=== PATIENT | male | born 1960 | race Hispanic/Latino ===

== ENCOUNTER 2017-06-15 09:50 | Emergency (ER) | payer OTHER ==
[~2017-06-15] VITALS: Ht 177.8 cm; Wt 100.0 kg
[~2017-06-15 09:50] MED LIST: BENZTROPINE0.5 MG PO; BUPROPION150 MG PO; BUT/APAP/CAF PO; FIORICET PO; LISINOPRIL/HYDR1 TA1 PO; LORTAB 10 OR; MEDDOSEPAK PO; MIRTAZAPINE15 MG PO; NO HOME MEDS; RISPERDAL2 MG PO; SEROQUEL100 MG PO; TRAZODONE50 MG PO
[2017-06-15 10:38] LABS: HEMATOCRIT 44.5 % (39.0-50.0); HEMOGLOBIN 15.2 g/dl (14.0-18.0); IMMATURE GRANULOCYTES 0.4 % (0.0-1.0); MEAN CORPUSCULAR HGB CONC 34.2 g/L CALC (32.0-36.0); NEUT# 5.65 thou/uL (1.82-7.42); RED BLOOD COUNT 4.9 mill/uL (4.70-6.10); RED CELL DISTRI WIDTH 12.9 % (11.5-15.5)
[2017-06-15 10:40] LABS: MEAN CELL VOLUME 90.8 fL CALC (80.0-100.0)
[2017-06-15 11:26] LABS: ALKALINE PHOSPHATASE 102 u/l (38-126); ANION GAP 17 (6-22 (CALC)); BILIRUBIN, TOTAL 0.3 mg/dL (0.0-1.4); BUN 15 mg/dL (9-20); BUN/CREATININE RATIO 15 (12-20 (CALC)); CARBON DIOXIDE 26 mmol/l (22-30); CHLORIDE 105 mmol/l (95-108); GFR > 60 ML/MIN (>=60 (CALC)); GFR FOR AFR.AMER. > 60 ML/MIN (>=60 (CALC)); LIPASE 86 u/l (23-300); POTASSIUM 3.7 mmol/l (3.5-5.1); SGPT/ALT 90 u/l (21-72); SODIUM 144 mmol/l (137-146); TOTAL PROTEIN 7.6 g/dL (6.3-8.2)
[2017-06-15 11:27] LABS: SGOT/AST 64 u/l (17-59)
[2017-06-15] MEDS ORDERED: AMOXICILLIN500 M2 PO (12:03)
[2017-06-15] MEDS ORDERED: DOXY 100100 MG PO (12:03)
[2017-06-15] MEDS ORDERED: VENTOLIN HFA IN (12:03)
[2017-06-15] MEDS ORDERED: TORADOL PO (12:03)
[2017-06-15 13:31] VITALS: BP 139/76
== END 2017-06-15 13:36 | disposition home or self-care (01) | DRG 195 ==
LOC: ED 09:50
PROVIDERS: Emergency Medicine
DX: J18.9 Pneumonia, unspecified organism (principal); R00.1 Bradycardia, unspecified; R42 Dizziness and giddiness; R53.1 Weakness; R07.9 Chest pain, unspecified; Z85.038 Personal history of other malignant neoplasm of large intestine

== ENCOUNTER 2019-05-25 | Emergency (ER) | payer OTHER ==
[~2019-05-25] MED LIST changes: +AMOXICILLIN500 M2 PO; +DOXY 100100 MG PO; +TORADOL PO; +VENTOLIN HFA IN
== END 2019-05-25 22:20 | disposition left against medical advice (07) ==
DX: G43.909 Migraine, unspecified, not intractable, without status migrainosus (principal); F17.200 Nicotine dependence, unspecified, uncomplicated; Z91.19 Patient's noncompliance with other medical treatment and regimen

== ENCOUNTER 2019-05-27 | Emergency (ER) | payer OTHER ==
[2019-05-27 18:44] LABS: HEMATOCRIT 42.3 % (39.0-50.0); HEMOGLOBIN 14.2 g/dl (14.0-18.0); IMMATURE GRANULOCYTES 0.4 % (0.0-5.0); MEAN CELL VOLUME 90.6 fL CALC (80.0-100.0); MEAN CORPUSCULAR HGB 30.4 pG CALC (26.0-32.0); MEAN CORPUSCULAR HGB CONC 33.6 g/L CALC (32.0-36.0); NEUT# 5.52 thou/uL (1.82-7.42); RED BLOOD COUNT 4.67 mill/uL (4.70-6.10); RED CELL DISTRI WIDTH 13.2 % (11.5-15.5)
[2019-05-27 18:59] LABS: ANION GAP 14 (6-22 (CALC)); BUN 20 mg/dL (9-20); BUN/CREATININE RATIO 19 (12-20 (CALC)); CARBON DIOXIDE 23 mmol/l (22-30); CHLORIDE 105 mmol/l (95-108); CREATININE 1.1 mg/dL (0.7-1.3); GFR > 60 ML/MIN (>=60 (CALC)); GFR FOR AFR.AMER. > 60 ML/MIN (>=60 (CALC)); POTASSIUM 3.5 mmol/l (3.5-5.1); SODIUM 138 mmol/l (137-146)
[2019-05-27] MEDS ORDERED: IMITREX25 MG PO (20:01)
== END 2019-05-27 20:10 | disposition home or self-care (01) ==
PROVIDERS: Family Medicine
DX: G43.909 Migraine, unspecified, not intractable, without status migrainosus (principal); F17.200 Nicotine dependence, unspecified, uncomplicated

== ENCOUNTER 2019-11-19 16:08 | Emergency (ER) | payer OTHER ==
[~2019-11-19] VITALS: Ht 177.8 cm; Wt 100.0 kg
[~2019-11-19 16:08] MED LIST changes: +IMITREX25 MG PO
[2019-11-19 16:46] LABS: HEMATOCRIT 40.5 % (39.0-50.0); HEMOGLOBIN 13.5 g/dl (14.0-18.0); IMMATURE GRANULOCYTES 0.2 % (0.0-5.0); MEAN CELL VOLUME 90.8 fL CALC (80.0-100.0); MEAN CORPUSCULAR HGB 30.3 pG CALC (26.0-32.0); MEAN CORPUSCULAR HGB CONC 33.3 g/dL CAL (32.0-36.0); NEUT# 5.58 thou/uL (1.82-7.42); RED BLOOD COUNT 4.46 mill/uL (4.70-6.10)
[2019-11-19 17:01] LABS: ALBUMIN 4.2 g/dL (3.2-5.0); ALKALINE PHOSPHATASE 104 u/l (38-126); ANION GAP 13 (6-22 (CALC)); BUN 12 mg/dL (9-20); BUN/CREATININE RATIO 12 (12-20 (CALC)); CARBON DIOXIDE 24 mmol/l (22-30); CHLORIDE 106 mmol/l (95-108); GFR > 60 ML/MIN (>=60 (CALC)); GFR FOR AFR.AMER. > 60 ML/MIN (>=60 (CALC)); POTASSIUM 3.7 mmol/l (3.5-5.1); SGOT/AST 39 u/l (17-59); SODIUM 139 mmol/l (137-146); TOTAL PROTEIN 7.6 g/dL (6.3-8.2)
[2019-11-19 17:06] LABS: BILIRUBIN, TOTAL 0.3 mg/dL (0.0-1.4)
[2019-11-19 17:40] VITALS: BP 133/82
== END 2019-11-19 17:45 | disposition home or self-care (01) ==
LOC: ED 16:08
PROVIDERS: Family Medicine
DX: R55 Syncope and collapse (principal); F17.200 Nicotine dependence, unspecified, uncomplicated; Z20.828 Contact with and (suspected) exposure to other viral communicable diseases; Z85.038 Personal history of other malignant neoplasm of large intestine; R07.9 Chest pain, unspecified

== ENCOUNTER 2020-01-14 15:03 | Emergency (ER) | payer OTHER ==
[~2020-01-14] VITALS: Ht 177.8 cm; Wt 100.0 kg
[2020-01-14 17:42] VITALS: BP 131/82
== END 2020-01-14 17:49 | disposition home or self-care (01) ==
LOC: ED 15:03
DX: Z20.828 Contact with and (suspected) exposure to other viral communicable diseases (principal); F41.9 Anxiety disorder, unspecified; F31.9 Bipolar disorder, unspecified; F17.200 Nicotine dependence, unspecified, uncomplicated

== ENCOUNTER 2020-10-26 13:13 | Emergency (ER) | payer OTHER ==
[~2020-10-26] VITALS: Ht 177.8 cm; Wt 100.0 kg
[~2020-10-26 13:13] MED LIST changes: +BENZTROPINE1 MG PO; +BUPROPN HCL300 MG PO; +CVS STOOL SOFT PO; +GABAPENTIN400 M2 PO; +LACTULOSE10 GM PO; +LISINOP/HCTZ1 TAB PO; +MELOXICAM15 MG PO; +METHOCARBAMOL500 MG PO; +MIRTAZAPINE45 M1 PO; +PRAVASTATIN20 MG PO; +QUETIAPINE FUM200 MG PO; +RISPERDAL PO; +RISPERIDONE4 M1 PO; +TAMSULOSIN HCL0.4 MG PO; +TOPIRAMATE ER50 MG PO; +TRAMADOL HCL50 MG PO; +TRAZODONE HYDR150 MG PO; +TRILEPTAL150 M1 PO
[2020-10-26 15:55] VITALS: BP 127/73
== END 2020-10-26 15:54 | disposition home or self-care (01) ==
LOC: ED 13:13
DX: G43.909 Migraine, unspecified, not intractable, without status migrainosus (principal); F31.9 Bipolar disorder, unspecified; F41.9 Anxiety disorder, unspecified; F17.210 Nicotine dependence, cigarettes, uncomplicated; Z85.038 Personal history of other malignant neoplasm of large intestine

== ENCOUNTER 2020-10-27 17:45 | Emergency (ER) | payer OTHER ==
[~2020-10-27] VITALS: Ht 177.8 cm; Wt 100.0 kg
[2020-10-28 00:15] VITALS: BP 120/74
[2020-11-24] MEDS ORDERED: GABAPENTIN400 M2 PO (13:55)
[2020-12-08] MEDS ORDERED: GABAPENTIN400 M2 PO (14:23)
[2020-12-08] MEDS ORDERED: TRAMADOL HCL50 MG PO (14:23)
[2020-12-08] MEDS ORDERED: MELOXICAM15 MG PO (14:26)
[2021-01-05] MEDS ORDERED: MELOXICAM15 MG PO ×2 (14:52→14:53)
[2021-01-05] MEDS ORDERED: GABAPENTIN400 M2 PO (14:54)
[2021-01-05] MEDS ORDERED: TRAMADOL HCL50 MG PO (14:56)
== END 2020-10-28 00:15 | disposition home or self-care (01) ==
LOC: ED 17:45
DX: G43.909 Migraine, unspecified, not intractable, without status migrainosus (principal); F31.9 Bipolar disorder, unspecified; F41.9 Anxiety disorder, unspecified; F17.200 Nicotine dependence, unspecified, uncomplicated; Z20.822 Contact with and (suspected) exposure to COVID-19; Z85.038 Personal history of other malignant neoplasm of large intestine

== ENCOUNTER 2020-11-04 05:52 | Day surgery (SDC) | payer OTHER ==
[~2020-11-04] VITALS: Ht 177.8 cm; Wt 99.8 kg
[2020-11-04 07:47] VITALS: BP 130/73
[2020-11-04] MEDS ORDERED: TRAMADOL HCL50 MG PO (07:50)
== END 2020-11-04 08:24 | disposition home or self-care (01) ==
LOC: ORM 05:52
PROVIDERS: ATTEND Anesthesiology Pain Medicine
DX: M54.5 Low back pain (principal); M47.816 Spondylosis without myelopathy or radiculopathy, lumbar region

== ENCOUNTER 2022-08-12 10:59 | Emergency (ER) | payer OTHER ==
[2022-08-12] VITALS (14 sets, daily range): BP systolic 67–131; BP diastolic 47–82
[~2022-08-12] VITALS: Ht 177.8 cm; Wt 104.0 kg
[2022-08-12 12:27] LABS: BASO% 0.5 % (0-3); EOS% 3.4 % (0-8); IMMATURE GRANULOCYTES 0.1 % (0.0-5.0); LYMPH% 21.2 % (15-41); MEAN CELL VOLUME 89.7 fL CALC (80.0-100.0); MEAN CORPUSCULAR HGB CONC 32.3 g/dL CAL (32.0-36.0); MONO% 8.3 % (2-13); NEUT# 5.34 thou/uL (1.82-7.42); NEUT% 66.5 % (42-76); RED BLOOD COUNT 5.42 mill/uL (4.70-6.10); RED CELL DISTRI WIDTH 13.9 % (11.5-15.5)
[2022-08-12 12:32] LABS: HEMATOCRIT 48.6 % (39.0-50.0); HEMOGLOBIN 15.7 g/dl (14.0-18.0)
[2022-08-12 12:38] LABS: ALKALINE PHOSPHATASE 112 u/l (38-126); ANION GAP 14 (6-22 (CALC)); BUN 12 mg/dL (8-23); BUN/CREATININE RATIO 12 (12-20 (CALC)); CARBON DIOXIDE 26 mmol/l (22-30); CHLORIDE 106 mmol/l (95-108); GFR FOR AFR.AMER. > 60 ML/MIN (>=60 (CALC)); GFR OTHER RACES > 60 ML/MIN (>=60 (CALC)); LIPASE 124 u/l (23-300); POTASSIUM 4.8 mmol/l (3.5-5.1); SODIUM 141 mmol/l (137-146)
[2022-08-12 12:39] LABS: ALBUMIN 4.6 g/dL (3.2-5.0); BILIRUBIN, TOTAL 0.5 mg/dL (0.2-1.3); SGOT/AST 74 u/l (19-48)
[2022-08-12 15:01] LABS: URINE BILIRUBIN - DIPSTICK NEGATIVE (NEGATIVE); URINE BLOOD DIPSTICK NEGATIVE (NEGATIVE); URINE COLOR YELLOW; URINE GLUCOSE - DIPSTICK NEGATIVE (NEGATIVE); URINE KETONE NEGATIVE (NEGATIVE); URINE LEUK ESTERASE NEGATIVE (NEGATIVE); URINE NITRITE - DIPSTICK NEGATIVE (Negative); URINE PH 5.5 (4.5-8.0); URINE PROTEIN - DIPSTICK TRACE mg/dL (NEG-TRACE); URINE SPECIFIC GRAVITY 1.015; URINE UROBILINOGEN - DIPSTICK 0.2 E.U./dL (0.2)
[2022-08-12] MEDS ORDERED: PROTONIX40 M2 PO (15:12)
== END 2022-08-12 16:37 | disposition home or self-care (01) ==
LOC: ED 10:59
PROVIDERS: Nurse Practitioner
DX: R10.84 Generalized abdominal pain (principal); F41.9 Anxiety disorder, unspecified; F31.9 Bipolar disorder, unspecified; F17.200 Nicotine dependence, unspecified, uncomplicated; Z85.038 Personal history of other malignant neoplasm of large intestine
CPT/HCPCS: Q9967; S0164

== ENCOUNTER 2022-08-24 11:08 | Emergency (ER) | payer OTHER ==
[~2022-08-24] VITALS: Ht 177.8 cm; Wt 105.0 kg
[2022-08-24] VITALS (37 sets, daily range): BP systolic 130–180; BP diastolic 74–118
[~2022-08-24 11:08] MED LIST changes: +PROTONIX40 M2 PO
[2022-08-24 12:19] LABS: ALBUMIN 4.2 g/dL (3.2-5.0); ALKALINE PHOSPHATASE 99 u/l (38-126); ANION GAP 13 (6-22 (CALC)); BILIRUBIN, TOTAL 0.5 mg/dL (0.2-1.3); BUN 14 mg/dL (8-23); BUN/CREATININE RATIO 15 (12-20 (CALC)); CARBON DIOXIDE 24 mmol/l (22-30); CHLORIDE 111 mmol/l (95-108); CREATININE 0.9 mg/dL (0.7-1.3); GFR FOR AFR.AMER. > 60 ML/MIN (>=60 (CALC)); GFR OTHER RACES > 60 ML/MIN (>=60 (CALC)); LIPASE 142 u/l (23-300); SGOT/AST 76 u/l (19-48); SODIUM 144 mmol/l (137-146); TOTAL PROTEIN 7.4 g/dL (6.3-8.2)
[2022-08-24 12:24] LABS: BASO% 0.4 % (0-3); EOS% 3.3 % (0-8); HEMATOCRIT 45.3 % (39.0-50.0); HEMOGLOBIN 14.8 g/dl (14.0-18.0); IMMATURE GRANULOCYTES 0.4 % (0.0-5.0); MEAN CELL VOLUME 87.8 fL CALC (80.0-100.0); MEAN CORPUSCULAR HGB 28.7 pG CALC (26.0-32.0); MEAN CORPUSCULAR HGB CONC 32.7 g/dL CAL (32.0-36.0); MONO% 5.6 % (2-13); NEUT# 4.27 thou/uL (1.82-7.42); NEUT% 54.3 % (42-76); RED BLOOD COUNT 5.16 mill/uL (4.70-6.10)
[2022-08-24] MEDS ORDERED: MIRTAZAPINE15 MG PO (15:19)
[2022-08-24] MEDS ORDERED: METFORMIN500 M2 PO (15:20)
[2022-08-24] MEDS ORDERED: BENZTROPINE1 MG PO (15:20)
[2022-08-24] MEDS ORDERED: TAMSULOSIN0.4 MG PO (15:20)
[2022-08-24] MEDS ORDERED: NABUMETONE500 MG PO (15:21)
[2022-08-24] MEDS ORDERED: ATORVASTATIN CA40 MG PO (15:21)
[2022-08-24] MEDS ORDERED: NEURONTIN600 MG PO (15:21)
== END 2022-08-24 20:05 | disposition short-term general hospital (02) ==
LOC: ED 11:08
PROVIDERS: Nurse Practitioner
DX: R10.84 Generalized abdominal pain (principal); R05.9 Cough, unspecified; R50.9 Fever, unspecified; R00.1 Bradycardia, unspecified; I44.0 Atrioventricular block, first degree; F31.9 Bipolar disorder, unspecified; F41.9 Anxiety disorder, unspecified; Z85.038 Personal history of other malignant neoplasm of large intestine; F17.210 Nicotine dependence, cigarettes, uncomplicated; Z20.822 Contact with and (suspected) exposure to COVID-19
CPT/HCPCS: Q9967

== ENCOUNTER 2022-09-25 10:00 | Emergency (ER) | payer OTHER ==
[~2022-09-25] VITALS: Ht 177.8 cm; Wt 83.9 kg
[2022-09-25] VITALS (17 sets, daily range): BP systolic 102–145; BP diastolic 58–89
[~2022-09-25 10:00] MED LIST changes: +ATORVASTATIN CA40 MG PO; +METFORMIN500 M2 PO; +NABUMETONE500 MG PO; +NEURONTIN600 MG PO; +TAMSULOSIN0.4 MG PO
[2022-09-25 10:32] LABS: BASO% 0.4 % (0-3); HEMATOCRIT 46.9 % (39.0-50.0); HEMOGLOBIN 15.2 g/dl (14.0-18.0); IMMATURE GRANULOCYTES 0.2 % (0.0-5.0); LYMPH% 24.8 % (15-41); MEAN CELL VOLUME 88.2 fL CALC (80.0-100.0); MEAN CORPUSCULAR HGB 28.6 pG CALC (26.0-32.0); MEAN CORPUSCULAR HGB CONC 32.4 g/dL CAL (32.0-36.0); MONO% 5.2 % (2-13); NEUT# 7.62 thou/uL (1.82-7.42); NEUT% 67.4 % (42-76); RED BLOOD COUNT 5.32 mill/uL (4.70-6.10); RED CELL DISTRI WIDTH 14.4 % (11.5-15.5)
[2022-09-25 10:37] LABS: ALBUMIN 4.3 g/dL (3.2-5.0); ALKALINE PHOSPHATASE 120 u/l (38-126); ANION GAP 14 (6-22 (CALC)); BILIRUBIN, TOTAL 0.8 mg/dL (0.2-1.3); BUN 16 mg/dL (8-23); BUN/CREATININE RATIO 16 (12-20 (CALC)); CARBON DIOXIDE 21 mmol/l (22-30); CHLORIDE 110 mmol/l (95-108); GFR FOR AFR.AMER. > 60 ML/MIN (>=60 (CALC)); GFR OTHER RACES > 60 ML/MIN (>=60 (CALC)); POTASSIUM 4.1 mmol/l (3.5-5.1); SGOT/AST 52 u/l (19-48); SODIUM 140 mmol/l (137-146); TOTAL PROTEIN 8.4 g/dL (6.3-8.2)
[2022-09-25] MEDS ORDERED: AMOX/K CLAV875 M1 PO (18:14)
== END 2022-09-25 18:33 | disposition home or self-care (01) ==
LOC: ED 10:00
PROVIDERS: Family Medicine
DX: R51.9 Headache, unspecified (principal); J18.9 Pneumonia, unspecified organism; F31.9 Bipolar disorder, unspecified; F41.9 Anxiety disorder, unspecified; F17.210 Nicotine dependence, cigarettes, uncomplicated; Z85.038 Personal history of other malignant neoplasm of large intestine

== ENCOUNTER 2022-10-03 12:10 | Observation (INO) | payer OTHER ==
[~2022-10-03] VITALS: Ht 177.8 cm; Wt 98.0 kg
[2022-10-03] VITALS (18 sets, daily range): BP systolic 107–160; BP diastolic 64–89
[~2022-10-03 12:10] MED LIST changes: +AMOX/K CLAV875 M1 PO
--- NOTE | 2022-10-03 12:10 | NUR ---
PT AMBULATED TO ROOM, ATTATCHED TO MONITORS.
--- NOTE | 2022-10-03 12:59 | NUR ---
PT AMBULATED TO BATHROOM BY SELF.
[2022-10-03 13:04] LABS: BASO% 0.3 % (0-3); EOS% 3.2 % (0-8); HEMATOCRIT 45.7 % (39.0-50.0); HEMOGLOBIN 15.1 g/dl (14.0-18.0); IMMATURE GRANULOCYTES 0.1 % (0.0-5.0); LYMPH% 32.7 % (15-41); MEAN CELL VOLUME 87.4 fL CALC (80.0-100.0); MEAN CORPUSCULAR HGB 28.9 pG CALC (26.0-32.0); MONO% 6.9 % (2-13); NEUT# 4.45 thou/uL (1.82-7.42); NEUT% 56.8 % (42-76); RED BLOOD COUNT 5.23 mill/uL (4.70-6.10)
[2022-10-03 13:14] LABS: ALBUMIN 4.2 g/dL (3.2-5.0); ALKALINE PHOSPHATASE 99 u/l (38-126); ANION GAP 15 (6-22 (CALC)); BILIRUBIN, TOTAL 0.6 mg/dL (0.2-1.3); BUN 20 mg/dL (8-23); BUN/CREATININE RATIO 21 (12-20 (CALC)); CARBON DIOXIDE 19 mmol/l (22-30); CHLORIDE 112 mmol/l (95-108); CREATININE 0.9 mg/dL (0.7-1.3); GFR FOR AFR.AMER. > 60 ML/MIN (>=60 (CALC)); GFR OTHER RACES > 60 ML/MIN (>=60 (CALC)); SGOT/AST 30 u/l (19-48); SODIUM 142 mmol/l (137-146); TOTAL PROTEIN 7.5 g/dL (6.3-8.2)
--- NOTE | 2022-10-03 13:20 | NUR ---
LAB RESULT FRM TUGN. 2.4 LACT ACID
--- NOTE | 2022-10-03 14:00 | NUR ---
pt r'cd iv meds, PT MADE AWARE OF POC.
--- NOTE | 2022-10-03 15:52 | NUR ---
PT IS SLEEOING, ABX INFUSING. WILL MONITOR,
--- NOTE | 2022-10-03 16:24 | NUR ---
CALLED TO GIVE REPORT FOR PT, M/S STAFF NOT READY TO RECEIVE PT.
--- NOTE | 2022-10-03 17:34 | NUR ---
PT ARRIVED VIA WC WITH CHIKIS PRICE RN. ORIENATTED PT TO ROOM AND CALL [facility] SYSTEM. ADMISSION ASSESSMENT ALLOWED. DISCUSSED CURENT PLAN OF CARE. PT INIDCATED UNDERSTANING. 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 FALL./SAFTEY PRECAUION IN PLACE. CALL LIGHT WITHIN REACH
--- NOTE | 2022-10-03 17:38 | NUR ---
report given to girma.
--- NOTE | 2022-10-03 17:45 | NUR ---
PT TRANSFERRED TO [facility].
--- NOTE | 2022-10-03 18:16 | NUR ---
PT COMPLAINIING OF CHEST PAIN. STATES FEELING " PRESSURE ON CHEST" MD NOTIFIED. ORDERS FOR EKG, TROPONIN. PT GRIMACING. FALL/SAFTEY PRECAUTIO JANI PLACE. CALL LIGHT WITHIN REACH
--- NOTE | 2022-10-03 18:27 | NUR ---
RT AT BEDSIDE
--- NOTE | 2022-10-03 19:01 | NUR ---
REPORT RECEIVED FROM Gurjit AMADO RN
--- NOTE | 2022-10-03 21:00 | NUR ---
PTIENT STATES HE NO LONGET TAKES SEROQUEL
[2022-10-04] VITALS (7 sets, daily range): BP systolic 108–118; BP diastolic 63–70
--- NOTE | 2022-10-04 00:05 | NUR ---
PATIENT RESTING, NO APPARENT DISTRESS NOTED. RESPIRATIONS EVEN AND UNLABORED, RISE AND FALL OF CHEST NOTED. CALL LIGHT AND BEDSIDE TABLE WITHIN REACH.
[2022-10-04 05:31] LABS: HEMATOCRIT 43.4 % (39.0-50.0); HEMOGLOBIN 14.3 g/dl (14.0-18.0); MEAN CELL VOLUME 87.7 fL CALC (80.0-100.0); MEAN CORPUSCULAR HGB 28.9 pG CALC (26.0-32.0); MEAN CORPUSCULAR HGB CONC 32.9 g/dL CAL (32.0-36.0); RED BLOOD COUNT 4.95 mill/uL (4.70-6.10); RED CELL DISTRI WIDTH 14.4 % (11.5-15.5)
[2022-10-04 05:35] LABS: ALBUMIN 3.8 g/dL (3.2-5.0); ALKALINE PHOSPHATASE 92 u/l (38-126); ANION GAP 15 (6-22 (CALC)); BILIRUBIN, TOTAL 0.4 mg/dL (0.2-1.3); BUN 21 mg/dL (8-23); BUN/CREATININE RATIO 24 (12-20 (CALC)); CARBON DIOXIDE 20 mmol/l (22-30); CHLORIDE 112 mmol/l (95-108); CREATININE 0.9 mg/dL (0.7-1.3); GFR FOR AFR.AMER. > 60 ML/MIN (>=60 (CALC)); GFR OTHER RACES > 60 ML/MIN (>=60 (CALC)); POTASSIUM 4.2 mmol/l (3.5-5.1); SGOT/AST 22 u/l (19-48); SODIUM 142 mmol/l (137-146)
--- NOTE | 2022-10-04 05:48 | NUR ---
PATIENT MEDICATED FOR GENERALIZED PAIN.
--- NOTE | 2022-10-04 06:17 | NUR ---
pt glucose was 157 @0615
--- NOTE | 2022-10-04 07:00 | NUR ---
RECEIVE REPORT FROM ALONDRA ABBOTT.
--- NOTE | 2022-10-04 08:00 | NUR ---
Alert and oriented patient x3. He does not report pain or discomfort at the time of this note. TV monitor on. patient is educated and oriented about medications and nursing plan for all. pt refer understand. safety and fall precautions in place. call light within reach.
[2022-10-04] MEDS ORDERED: MEDDOSEPAK PO (11:20)
[2022-10-04] MEDS ORDERED: VIBRAMYCIN100 M2 PO (11:20)
--- NOTE | 2022-10-04 12:32 | NUR ---
PATIENT RESTING IN BED, NO APPARENT DISTRESS NOTED. RESPIRATIONS EVEN AND UNLABORED, RISE AND FALL OF CHEST NOTED. CALL LIGHT AND BEDSIDE TABLE WITHIN REACH.
--- NOTE | 2022-10-04 15:50 | NUR ---
Discharge instructions given. Patient verbalizes understanding of same. Discharged in stable condition via Wheelchair to Home with staff. All belongings sent with pt. IV REMOVED X2 TELE REMOVED.
== END 2022-10-04 15:50 | disposition home or self-care (01) ==
LOC: ED 12:10 → MS2 13:57
PROVIDERS: Nurse Practitioner; ADMIT Internal Medicine; ATTEND Internal Medicine
DX: J18.9 Pneumonia, unspecified organism (principal); E11.9 Type 2 diabetes mellitus without complications; F31.9 Bipolar disorder, unspecified; F41.9 Anxiety disorder, unspecified; F17.210 Nicotine dependence, cigarettes, uncomplicated; R19.7 Diarrhea, unspecified; Z79.84 Long term (current) use of oral hypoglycemic drugs; Z20.822 Contact with and (suspected) exposure to COVID-19; Z85.038 Personal history of other malignant neoplasm of large intestine
CPT/HCPCS: G0378; J1650; Q9967

== ENCOUNTER 2022-12-16 11:32 | Emergency (ER) | payer OTHER ==
[~2022-12-16] VITALS: Ht 177.8 cm; Wt 92.4 kg
[~2022-12-16 11:32] MED LIST changes: +VIBRAMYCIN100 M2 PO
[2022-12-16 13:07] LABS: BASO% 0.3 % (0-3); EOS% 3.9 % (0-8); HEMATOCRIT 43.7 % (39.0-50.0); HEMOGLOBIN 14.3 g/dl (14.0-18.0); IMMATURE GRANULOCYTES 0.5 % (0.0-5.0); LYMPH% 30.5 % (15-41); MEAN CELL VOLUME 89.5 fL CALC (80.0-100.0); MEAN CORPUSCULAR HGB 29.3 pG CALC (26.0-32.0); MEAN CORPUSCULAR HGB CONC 32.7 g/dL CAL (32.0-36.0); MONO% 4.5 % (2-13); NEUT# 6.61 thou/uL (1.82-7.42); NEUT% 60.3 % (42-76); RED BLOOD COUNT 4.88 mill/uL (4.70-6.10); RED CELL DISTRI WIDTH 14.6 % (11.5-15.5)
[2022-12-16 13:15] LABS: ALKALINE PHOSPHATASE 108 u/l (38-126); ANION GAP 12 (6-22 (CALC)); BUN 15 mg/dL (8-23); BUN/CREATININE RATIO 15 (12-20 (CALC)); CARBON DIOXIDE 18 mmol/l (22-30); CHLORIDE 117 mmol/l (95-108); GFR FOR AFR.AMER. > 60 ML/MIN (>=60 (CALC)); GFR OTHER RACES > 60 ML/MIN (>=60 (CALC)); LIPASE 92 u/l (23-300); POTASSIUM 3.8 mmol/l (3.5-5.1); SGOT/AST 32 u/l (19-48); SODIUM 143 mmol/l (137-146); TOTAL PROTEIN 7.5 g/dL (6.3-8.2)
[2022-12-16 13:21] LABS: BILIRUBIN, TOTAL 0.6 mg/dL (0.2-1.3)
[2022-12-16] MEDS ORDERED: LEVSIN0.125 M1 PO (16:48)
[2022-12-16 17:12] VITALS: BP 114/76
== END 2022-12-16 17:14 | disposition left against medical advice (07) ==
LOC: ED 11:32
PROVIDERS: Family Medicine
DX: R10.84 Generalized abdominal pain (principal); F31.9 Bipolar disorder, unspecified; E11.9 Type 2 diabetes mellitus without complications; F41.9 Anxiety disorder, unspecified; F17.210 Nicotine dependence, cigarettes, uncomplicated; Z90.49 Acquired absence of other specified parts of digestive tract; Z85.038 Personal history of other malignant neoplasm of large intestine; Z53.29 Procedure and treatment not carried out because of patient's decision for other reasons
CPT/HCPCS: Q9967

== ENCOUNTER → 2023-03-10 | Emergency (ER) | payer OTHER ==
[~2023-03-10] VITALS: Ht 177.8 cm; Wt 86.0 kg
[~2023-03-10] MED LIST changes: +DICYCLOMINE HCL20 MG PO; +LEVSIN0.125 M1 PO; +OMEPRAZOLE DR20 MG; +PREDNISONE50 MG PO; +TOPIRAMATE100 MG PO; +VENTOLIN HFA108 MCG PA; +ZPAK PO
[2023-03-10 11:40] VITALS: BP 116/73
[2023-03-10 12:00] VITALS: BP 111/77
[2023-03-10 12:21] LABS: BASO% 0.2 % (0-3); EOS% 3.4 % (0-8); HEMATOCRIT 44.7 % (39.0-50.0); HEMOGLOBIN 15.2 g/dl (14.0-18.0); IMMATURE GRANULOCYTES 0.1 % (0.0-5.0); LYMPH% 29.7 % (15-41); MEAN CELL VOLUME 85.6 fL CALC (80.0-100.0); MEAN CORPUSCULAR HGB 29.1 pG CALC (26.0-32.0); MONO% 5.7 % (2-13); NEUT# 4.95 thou/uL (1.82-7.42); NEUT% 60.9 % (42-76); RED BLOOD COUNT 5.22 mill/uL (4.70-6.10); RED CELL DISTRI WIDTH 13.9 % (11.5-15.5)
[2023-03-10 12:29] VITALS: BP 111/77
[2023-03-10 12:37] LABS: ALBUMIN 4.2 g/dL (3.2-5.0); ALKALINE PHOSPHATASE 108 u/l (38-126); ANION GAP 12 (6-22 (CALC)); BILIRUBIN, TOTAL 0.7 mg/dL (0.2-1.3); BUN 13 mg/dL (8-23); BUN/CREATININE RATIO 12 (12-20 (CALC)); CARBON DIOXIDE 20 mmol/l (22-30); CHLORIDE 113 mmol/l (95-108); CREATININE 1.1 mg/dL (0.7-1.3); GFR FOR AFR.AMER. > 60 ML/MIN (>=60 (CALC)); GFR OTHER RACES > 60 ML/MIN (>=60 (CALC)); POTASSIUM 3.9 mmol/l (3.5-5.1); SGOT/AST 30 u/l (19-48); SODIUM 141 mmol/l (137-146); TOTAL PROTEIN 7.3 g/dL (6.3-8.2)
== END | disposition home or self-care (01) | DRG 951 ==
LOC: ED 11:23 → LWOBS 12:21
PROVIDERS: Emergency Medicine
DX: Z53.21 Procedure and treatment not carried out due to patient leaving prior to being seen by health care provider (principal); R10.9 Unspecified abdominal pain